=== PATIENT | male | born 1985 | race Hispanic/Latino ===

== ENCOUNTER 2018-06-10 10:38 | Emergency (ER) | payer MEDICAID ==
[2018-06-10 11:03] VITALS: BP 102/63; PULSE 98; RESP 18; TEMP 98.2; O2SAT 99
--- NOTE | 2018-06-10 11:21 | C.PDOC ---
History Of Present Illness 32 year old male presents to the ED for evaluation of a laceration sustained to his left lateral thumb earlier today. Patient states he accidentally cut the area with a kitchen knife at work prior to arrival. Patient denies change in sensation or any other injuries at this time. Time Seen by Provider: 06/10/18 11:16 Chief Complaint (Nursing): Abnormal Skin Integrity History Per: Patient History/Exam Limitations: no limitations Onset/Duration Of Symptoms: Hrs Current Symptoms Are (Timing): Still Present Location Of Injury: Left: Hand (lateral thumb ) Quality Of Symptoms: Painful Additional History Per: Patient Past Medical History Reviewed: Historical Data, Nursing Documentation, Vital Signs Vital Signs: Last Vital Signs Temp 98.2 F 06/10/18 10:57 Pulse 98 H 06/10/18 10:57 Resp 18 06/10/18 10:57 BP 102/63 06/10/18 10:57 Pulse Ox 99 06/10/18 10:57 - Medical History PMH: Depression Surgical History: No Surg Hx Family History: States: Unknown Family Hx - Social History Hx Alcohol Use: No Hx Substance Use: No - Immunization History Hx Tetanus Toxoid Vaccination: No Hx Influenza Vaccination: No Hx Pneumococcal Vaccination: No Review Of Systems Skin: Positive for: Other (laceration to left lateral thumb ) Neurological: Negative for: Weakness, Numbness Physical Exam - Physical Exam Appears: Non-toxic, No Acute Distress Skin: Normal Color, Warm, Dry, Other (1x1cm area avulsed from tip of left lateral thumb. no nail involvement. active bleeding.) Extremity: Normal ROM, Capillary Refill (less than 2 seconds ) Neurological/Psych: Normal Speech, Normal Cognition, Normal Sensation ED Course And Treatment O2 Sat by Pulse Oximetry: 99 (on RA) Pulse Ox Interpretation: Normal Medical Decision Making Medical Decision Making: small L lateral thrumb avulsion, kitchen knife no material to suture. Disposition Doctor Will See Patient In The: Office Counseled Patient/Family Regarding: Studies Performed, Diagnosis - Disposition Referrals: [facility] [Outside] [facility] [Outside] [facility] [Outside] [facility] [Outside] Disposition: HOME/ ROUTINE Disposition Time: 11:19 Condition: GOOD Additional Instructions: ice pack for local anesthesia and control bleeding clean bandage daily bacitracin ointment daily no antibiotics required wear glove at work keep clean and dry. Instructions: Laceration Repair, Wound Care (DC) Forms: [employer] (Czech) - Clinical Impression Clinical Impression: Avulsion, skin - Scribe Statement The provider has reviewed the documentation as recorded by the Scribe (Kaitlin Velasco) Provider Attestation: All medical record entries made by the Scribe were at my direction and personally dictated by me. I have reviewed the chart and agree that the record accurately reflects my personal performance of the history, physical exam, medical decision making, and the department course for this patient. I have also personally directed, reviewed, and agree with the discharge instructions and disposition.
[2018-06-10] MEDS ORDERED: Bacitracin 500 Units/gm Oint Foilpak UD ONE (11:58)
== END 2018-06-10 12:00 | disposition home or self-care (01) ==
LOC: C.ER 10:38
DX: S61.002A Unspecified open wound of left thumb without damage to nail, initial encounter (principal); W26.0XXA Contact with knife, initial encounter; Y92.89 Other specified places as the place of occurrence of the external cause; Y99.0 Civilian activity done for income or pay

== ENCOUNTER 2018-07-24 10:36 | Emergency (ER) | payer MEDICAID, OTHER ==
[2018-07-24 10:48] VITALS: BMI 32.2
[2018-07-24 10:51] VITALS: BP 106/72; PULSE 92; RESP 18; TEMP 98.5; O2SAT 99
--- NOTE | 2018-07-24 11:59 | C.PDOC ---
History Of Present Illness 33 years old male left ER prior to being evaluated. Time Seen by Provider: 07/24/18 11:45 Chief Complaint (Nursing): Med Refill Past Medical History Reviewed: Historical Data, Nursing Documentation, Vital Signs Vital Signs: Last Vital Signs Temp 98.5 F 07/24/18 10:48 Pulse 92 H 07/24/18 10:48 Resp 18 07/24/18 10:48 BP 106/72 07/24/18 10:48 Pulse Ox 99 07/24/18 10:48 - Medical History PMH: Depression Family History: States: Unknown Family Hx - Social History Hx Alcohol Use: No Hx Substance Use: No - Immunization History Hx Tetanus Toxoid Vaccination: No Hx Influenza Vaccination: No Hx Pneumococcal Vaccination: No Review Of Systems Review Of Systems: ROS cannot be obtained secondary to pt's inabilty to answer questions. (Due to patient leaving before being evaluated) ED Course And Treatment O2 Sat by Pulse Oximetry: 99 (RA) Pulse Ox Interpretation: Normal Medical Decision Making Medical Decision Making: Patient left prior to being seen. Disposition - Disposition Disposition: LEFT W/O BEING SEEN - ER ONLY Disposition Time: 12:00 Condition: STABLE Forms: [employer] (Slovenian) - Clinical Impression Clinical Impression: Patient left without being seen - Scribe Statement The provider has reviewed the documentation as recorded by the Scribjuliet Bustillos All medical record entries made by the Scribe were at my direction and personally dictated by me. I have reviewed the chart and agree that the record accurately reflects my personal performance of the history, physical exam, medical decision making, and the department course for this patient. I have also personally directed, reviewed, and agree with the discharge instructions and disposition.
== END 2018-07-24 11:45 | disposition left against medical advice (07) ==
LOC: C.ER 10:36
DX: Z02.89 Encounter for other administrative examinations (principal); Z76.0 Encounter for issue of repeat prescription

== ENCOUNTER 2018-10-05 08:24 | Inpatient (IN) | payer MEDICAID ==
[2018-10-05 08:24] VITALS: BMI 32.2
[2018-10-05 10:29] LABS: BASO # 0.1 K/uL (0.0-0.2); BASO % 0.7 % (0.0-2.0); EOS # 0.1 K/uL (0.0-0.7); EOS % 0.9 % (0.0-4.0); HEMOGLOBIN 14.4 g/dL (12.0-18.0); LYMPH # 2.1 K/uL (1.0-4.3); LYMPH % 21.3 % (20.0-40.0); MEAN CELL VOLUME 88.6 fL (80.0-94.0); MEAN CORPUSCULAR HEMOGLOBIN 29.4 pg (27.0-31.0); MEAN CORPUSCULAR HGB CONC 33.2 g/dL (33.0-37.0); MEAN PLATELET VOLUME 8.7 fL (7.2-11.7); MONO % 10.3 % (0.0-10.0); NEUT # 6.5 K/uL (1.8-7.0); NEUT % 66.8 % (50.0-75.0); RBC 4.88 Mil/uL (4.40-5.90); RED CELL DISTRIBUTION WIDTH 13.3 % (11.5-14.5); WHITE BLOOD COUNT 9.7 K/uL (4.8-10.8)
[2018-10-05 10:49] LABS: URINE BILIRUBIN NEGATIVE (NEGATIVE); URINE BLOOD NEGATIVE (NEGATIVE); URINE CALCIUM OXALATE CRYSTALS OCC /hpf (<OCC); URINE CLARITY Clear (Clear); URINE COLOR Amber (YELLOW); URINE GLUCOSE (UA) NORMAL (Normal); URINE LEUKOCYTE ESTERASE NEG Leu/uL (Negative); URINE PROTEIN NEGATIVE (NEGATIVE); URINE UROBILINOGEN NORMAL mg/dL (0.2-1.0)
[2018-10-05 10:59] LABS: ALB/GLOB RATIO 1.5 (1.0-2.1); ALBUMIN 4.4 g/dL (3.5-5.0); ALT/SGPT 22 U/L (21-72); AST/SGOT 36 U/L (17-59); BLOOD UREA NITROGEN 16 mg/dL (9-20); CALCIUM 9.1 mg/dl (8.6-10.4); GFR NON-AFRICAN AMERICAN > 60
[2018-10-05 11:08] LABS: BARBITURATES, UR NEGATIVE (NEGATIVE); BENZODIAZEPINES, UR NEGATIVE (NEGATIVE); PHENCYCLIDINE, UR NEGATIVE (NEGATIVE)
[2018-10-05 11:12] LABS: OPIATES, UR POSITIVE (NEGATIVE)
--- NOTE | 2018-10-05 11:13 | C.PDOC ---
History Of Present Illness 33 years old male presents to the ED requesting heroin detox. Patient states he last used intranasally this morning. He denies any complaints of withdrawal symptoms at this time. Patient denies suicidal/homicidal ideation at this time. Time Seen by Provider: 10/05/18 08:45 Chief Complaint (Nursing): Substance Abuse History Per: Patient History/Exam Limitations: no limitations Onset/Duration Of Symptoms: Hrs Current Symptoms Are (Timing): Still Present Suicide/Self Injury Attempted (Context): None Modifying Factor(s): Other (heroin ) Associated Symptoms: denies: Suicidal Thoughts, Suicidal Plan Involuntary Hold By: None Recent travel outside of the [place]: No Additional History Per: Patient Past Medical History Reviewed: Historical Data, Nursing Documentation, Vital Signs Vital Signs: Last Vital Signs Temp 99.1 F 10/05/18 08:31 Pulse 117 H 10/05/18 08:31 Resp 18 10/05/18 08:31 BP 128/81 10/05/18 08:31 Pulse Ox 99 10/05/18 08:31 - Medical History PMH: Depression Surgical History: No Surg Hx Family History: States: Unknown Family Hx - Social History Hx Alcohol Use: No Hx Substance Use: Yes - Immunization History Hx Tetanus Toxoid Vaccination: No Hx Influenza Vaccination: No Hx Pneumococcal Vaccination: No Review Of Systems Constitutional: Negative for: Fever, Chills, Weakness Eyes: Negative for: Redness, Other (scleral icterus ) ENT: Negative for: Mouth Swelling Cardiovascular: Negative for: Chest Pain Respiratory: Negative for: Cough, Shortness of Breath Gastrointestinal: Negative for: Nausea, Vomiting, Diarrhea Genitourinary: Negative for: Dysuria, Hematuria Musculoskeletal: Negative for: Back Pain Skin: Negative for: Rash Neurological: Negative for: Weakness, Numbness, Dizziness Psych: Positive for: Other (heroin detox ). Negative for: Suicidal ideation, Withdrawal Physical Exam - Physical Exam Appears: Well, Non-toxic, No Acute Distress Skin: Normal Color, Warm, No Rash Head: Atraumatic, Normacephalic Eye(s): bilateral: Normal Inspection (no scleral icterus ), PERRL, EOMI Ear(s): Bilateral: Normal (no drainage ) Nose: Normal Oral Mucosa: Moist Throat: Normal (no swelling or injection ), No Exudate, Other (airway patent ) Neck: Normal ROM, Supple Chest: Symmetrical Respiratory: No Accessory Muscle Use, Other (normal inspiratory effort ) Gastrointestinal/Abdominal: Soft, No Distention Back: Other (ambulating with steady upright gait ) Extremity: Normal ROM Extremity: Bilateral: Atraumatic Pulses: Left Radial: Normal, Right Radial: Normal Neurological/Psych: Oriented x3, Normal Cranial Nerves (grossly intact ) ED Course And Treatment - Laboratory Results Result Diagrams: 10/05/18 10:22 10/05/18 10:22 Lab Results: Total Bilirubin 0.5 mg/dL (0.2-1.3) 10/05/18 10:22 AST 36 U/L (17-59) 10/05/18 10:22 ALT 22 U/L (21-72) 10/05/18 10:22 Alkaline Phosphatase 68 U/L (38-126) 10/05/18 10:22 Total Protein 7.3 g/dL (6.3-8.3) 10/05/18 10:22 Albumin 4.4 g/dL (3.5-5.0) 10/05/18 10:22 Globulin 2.9 gm/dL (2.2-3.9) 10/05/18 10:22 Albumin/Globulin Ratio 1.5 (1.0-2.1) 10/05/18 10:22 Urine Color Sanjuana (YELLOW) 10/05/18 10:22 Urine Clarity Clear (Clear) 10/05/18 10:22 Urine pH 5.0 (5.0-8.0) 10/05/18 10:22 Ur Specific [place] 1.029 (1.003-1.030) 10/05/18 10:22 Urine Protein Negative mg/dL (NEGATIVE) 10/05/18 10:22 Urine Glucose (UA) Normal mg/dL (Normal) 10/05/18 10:22 Urine Ketones Negative mg/dL (NEGATIVE) 10/05/18 10:22 Urine Blood Negative (NEGATIVE) 10/05/18 10:22 Urine Nitrate Negative (NEGATIVE) 10/05/18 10:22 Urine Bilirubin Negative (NEGATIVE) 10/05/18 10:22 Urine Urobilinogen Normal mg/dL (0.2-1.0) 10/05/18 10:22 Ur Leukocyte Esterase Neg Glenn/uL (Negative) 10/05/18 10:22 Urine WBC (Auto) 2 /hpf (0-5) 10/05/18 10:22 Urine RBC (Auto) 1 /hpf (0-3) 10/05/18 10:22 Calcium Oxalate Crystal Occ /hpf (<OCC) H 10/05/18 10:22 O2 Sat by Pulse Oximetry: 99 (on RA ) Pulse Ox Interpretation: Normal Medical Decision Making Medical Decision Making: Progress: Case discussed with wafer polishing worker, who evaluated the patient at bedside. Patient will received a detox bed once he has been medically cleared in the ED. Bloodwork and urinalysis ordered and reviewed. Disposition - Disposition Disposition: HOSPITALIZED Disposition Time: 11:48 Condition: STABLE - Clinical Impression Clinical Impression: Opioid use disorder, severe, dependence - PA / ECOLOGIST / Resident Statement MD/DO has reviewed & agrees with the documentation as recorded. - Scribe Statement The provider has reviewed the documentation as recorded by the Scribe (Kaitlin Velasco) All medical record entries made by the Scribe were at my direction and personally dictated by me. I have reviewed the chart and agree that the record accurately reflects my personal performance of the history, physical exam, medical decision making, and the department course for this patient. I have also personally directed, reviewed, and agree with the discharge instructions and disposition. Decision To Admit - Pt Status Changed To: Hospital Disposition Of: Inpatient - Admit Certification Admit to Inpatient:: After my assessment, the patient will require hospitalization for at least two midnights. This is because of the severity of symptoms shown, intensity of services needed, and/or the medical risk in this patient being treated as an outpatient. - InPatient: Physician Admission Certification: I certify that this patient requires 2 or more midnights of care for the following reason:: patient will require more than 2 nights for detox - . Bed Request Type: Detox Admitting Physician: Yao Hemphill Patient Diagnosis: Opioid use disorder, severe, dependence
--- NOTE | 2018-10-05 13:04 | PCM.PSYCH ---
Initial Psychiatric Evaluation - Initial Psychiatric Evaluation Type of Admission: Voluntary Legal Status: Capacity Chief Complaint (in patient's own words): "I am withdrawing" History of Present Illness and Precipitating Events: The patient is seen, chart reviewed and case discussed. This is a 23-year-old male, single with no child, homeless and unemployed. The patient is here for opioid detox. He admits to having he used heroin the last 10 days or more while at [facility], around 10 bags a day right he uses intranasally. He was admitted to [facility] mid September and he states that he relapsed soon after. He re ports withdrawal symptoms and OD in the past. He started using opiates at age 29. He denies other drug use or alcohol currently but he used to use cocaine, ecstasy and others in the past. He smokes 1 pack/day cigarettes. He was not rehab [facility] times including [facility] and [facility]. Past psychiatric: He was hospitalized at least 8 times to psychiatry and attempted suicide once in 2014 by overdosing on Klonopin. He was diagnosed with recurrent depression. Currently, he is still depressed but denies feeling suicidal. No audelia or psychosis elicited. He says that some of the psych adm issions were due to substance induced psych symptoms. Medical history: Denies Family psych history: Father had crack cocaine use and bipolar disorder. Current Medications: Active Medications Generic Name Dose Route Start Last Admin Trade Name Freq PRN Reason Stop Dose Admin Al Hydrox/Mg Hydrox/Simethicone 30 ml 10/05/18 14:00 Maalox 30 Ml PO TID PRN Indigestion / Heartburn Aripiprazole 5 mg 10/05/18 22:00 Abilify PO HS JESUS Clonidine HCl 0.1 mg 10/05/18 12:29 Catapres PO Q4 PRN COWS Score More or Equal to 5 Hydroxyzine HCl 50 mg 10/05/18 12:29 Atarax PO Q6H PRN Anxiety Ibuprofen 600 mg 10/05/18 12:29 Motrin Tab PO Q6H PRN Pain, moderate (4-7) Loperamide HCl 2 mg 10/05/18 14:00 Imodium PO Q8 PRN Diarrhea Mirtazapine 15 mg 10/05/18 22:00 Remeron PO HS JESUS Ondansetron HCl 4 mg 03/04/19 12:29 Zofran Tab PO Q8 PRN Nausea/Vomiting Sertraline HCl 50 mg 10/05/18 12:30 Zoloft PO DAILY JESUS Past Psychiatric History - Past Psychiatric History Previous Treatment History: Inpatient Pertinent Medical Hx (Current Medical&Sleep Prob, Allergies): Allergies Allergy/AdvReac Type Severity Reaction Status Date / Time amoxicillin Allergy RASH Verified 10/05/18 08:34 Penicillins Allergy RASH Verified 10/05/18 08:34 ARIPiprazole [Abilify] 5 mg PO DAILY 07/24/18 Sertraline [Zoloft] 200 mg PO DAILY 07/24/18 Gabapentin 300 mg PO TID 10/05/18 Review of Systems - Neurological Neurological: Tremor - Psychiatric Psychiatric: Abnormal Sleep Pattern, Anhedonia, Anxiety, Change in Appetite, Depression, Difficulty Concentrating, Irritability. absent: Hallucinations, Homicidal Ideation, Paranoia, Suicidal Ideation Mental Status Examination - Personal Presentation Personal Presentation: Looks stated age - Affect Affect: Constricted - Motor Activity Motor Activity: Calm - Reliability in Providing Information Reliability in Providing Information: Good - Speech Speech: Organized - Mood Mood: Depressed (He has who) - Formal Thought Process Formal Thought Process: No Impairment ( who is dad) - Cognitive Functions Orientation: Person, Place, Situation, Time Attention/Concentration: Attentive Estimate of Intelligence: Average Judgement: Intact, as evidence by: Insight regarding need for hospitalization Memory: Recent intact, as evidence by: Ability to recall events of the day, Remote intact, as evidenced by: Abilit to recall sig. life events - Risk Risk: Withdrawal, Diminished functioning - Strength & Assets Inventory Strength & Assets Inventory: Cooperative - Limitations Limitations: Other DSM 5 DX - DSM 5 DSM 5 Diagnosis: Opioid withdrawal Opioid use disorder, severe Major depressive disorder, recurrent, moderate Cocaine use disorder, in remission Tobacco use disorder, severe - Recommended/Plan of Treatment Treatment Recommendations and Plan of Treatment: Taper with methadone Continue Zoloft and Abilify Gabapentin for augmentation if needed As needed medications All risks, benefits and alternatives of the meds discussed, and the pt agreed and understood. Attend groups and activities Supportive therapy and psychoeducation [place] for abstinence CBT for relapse prevention Encourage MAT Refer to rehab or IOP, and self-help groups Teach healthy lifestyle methods, i.e. diet, exercise, meditation Smoking cessation with RI Nicotine patch if needed 34 min Projected ELOS: 4-5 days Prognosis: Good with treatment Discharge Plan and Discharge Criteria: Referred to rehab - Smoking Cessation Smoking Cessation Initiated: Yes
--- NOTE | 2018-10-05 13:51 | PCM.BM ---
<Brant Rodas - Last Filed: 10/05/18 13:47> Treatment Plan Problems - Problems identified on initial assessmt defensive coping Date Initiated: 10/05/18 Time Initiated: 13:49 Assessment reference: NA Status: Active Hopelessness Date Initiated: 10/05/18 Time Initiated: 13:50 Assessment reference: NA Status: Active Treatment assets and liabiliti Patient Assests: cooperative, ADL independent Patient Liabilities: live alone, substance abuse - Milieu Protocol Maintain good personal hygiene: daily Encourage regular showers, daily Remind patient to perform daily oral care, daily Assist patient to perform ADL's Maintain personal safety: every shift Educate patient to report safety concerns to staff, every shift Monitor environment for contraband/sharps Medication safety: Monitor for expected outcome, potential side effects: every shift, Assess barriers to learning: every shift, Assess readiness for medication education: every shift <Yao Hemphill - Last Filed: 10/05/18 14:20> - Diagnosis (1) Opioid use disorder, severe, dependence Status: Acute Interventions: 10/05/18 14:21 * Assess 7x/week regarding severity of withdrawal * Educate regarding risks, benefits, side effects and alternatives of medications * Use Motivational Interviewing for abstinence * Use CBT for relapse prevention * Medication management for withdrawal symptoms * Encourage medication assisted treatment * <Kiana Pederson - Last Filed: 10/07/18 09:38> Family Contact Family involvement: No known Family/SO - Goals for Treatment Patient goals for treatment: Complete detox and apply for long-term residential program. Discharge/Continuing Care - Education Needs Education Needs: Patient Medication, Patient Diagnosis/Disease Process, Patient Coping Skills, Patient Anger Management skills, Patient Placement options, Patient Community resources - Discharge Discharge Criteria: No longer exhibiting s/s of withdrawal, Reduction of target symptoms Discharge to:: Substance Abuse Rehab - Treatment Team Participation Patient/Family/SO Statement: 10/07/18 09:37 "I'll try the [facility] in [facility] I can't go back to the one on in [facility]." Discussed with Family/SO: No Was Patient/Family/SO present at Treatment Team Meeting: Yes
[2018-10-05] MEDS ORDERED: Aluminum Hydroxide/Magnesium Hydroxide Susp (30 mL) PO PRN (14:00)
--- NOTE | 2018-10-06 13:12 | PCM.PYCHPN ---
Psychiatric Progress Note - Psychiatric Progress Note Patient seen today, length of contact: 17 min Patient Chief Complaint: "I am so so" Problems Identified/Issues Discussed: The pt is seen, chart reviewed, case is discussed with staff. The pt is compliant with medications and reports no side-effects. Symptoms are improving but needs more time to stabilize and to avoid relapse. Pt attends groups and activities. Support given, psycho-education provided. After care discussed. Medication Change: Yes (detox changes daily) Medical Record Reviewed: Yes Mental Status Examination - Cognitive Function Orientation: Person, Place, Situation, Time Memory: Intact Attention: WNL Concentration: Poor Association: WNL Fund of Knowledge: WNL - Mood Mood: Depressed - Affect Affect: Constricted - Speech Speech: Appropriate - Formal Thought Process Formal Thought Process: No Impairment - Suicidal Ideation Suicidal Ideation: No Goal/Treatment Plan - Goal/Treatment Plan Need for Continued Stay: Discharge may exacerbated symptoms, Severe functional impairment Progress Toward Problem(s) and Goals/Treatment Plan: Taper with methadone Continue Zoloft and Abilify Gabapentin for augmentation if needed As needed medications All risks, benefits and alternatives of the meds discussed, and the pt agreed and understood. Attend groups and activities Supportive therapy and psychoeducation [place] for abstinence CBT for relapse prevention Encourage MAT Refer to rehab or IOP, and self-help groups Teach healthy lifestyle methods, i.e. diet, exercise, meditation Smoking cessation with [place] Nicotine patch if needed
--- NOTE | 2018-10-07 23:10 | PCM.PYCHPN ---
Psychiatric Progress Note - Psychiatric Progress Note Patient seen today, length of contact: 15 min Patient Chief Complaint: "I am better" Problems Identified/Issues Discussed: The pt is seen again, chart reviewed, and case is discussed with the team. The pt denies any side-effects from meds. Attends activities and groups, brief individual therapy provided Not ready for discharge due to ongoing symptoms and high relapse risk. After care discussed again. Medication Change: Yes (detox changes daily) Medical Record Reviewed: Yes Mental Status Examination - Cognitive Function Orientation: Person, Place, Situation, Time Memory: Intact Attention: WNL Concentration: Poor Association: WNL Fund of Knowledge: WNL - Mood Mood: Depressed - Affect Affect: Constricted - Speech Speech: Appropriate - Formal Thought Process Formal Thought Process: No Impairment - Suicidal Ideation Suicidal Ideation: No Goal/Treatment Plan - Goal/Treatment Plan Need for Continued Stay: Discharge may exacerbated symptoms, Severe functional impairment Progress Toward Problem(s) and Goals/Treatment Plan: Taper with methadone Continue Zoloft and Abilify Gabapentin for augmentation if needed As needed medications All risks, benefits and alternatives of the meds discussed, and the pt agreed and understood. Attend groups and activities Supportive therapy and psychoeducation [place] for abstinence CBT for relapse prevention Encourage MAT Refer to rehab or IOP, and self-help groups Teach healthy lifestyle methods, i.e. diet, exercise, meditation Smoking cessation with [place] Nicotine patch if needed
--- NOTE | 2018-10-08 12:46 | PCM.PYCHPN ---
Psychiatric Progress Note - Psychiatric Progress Note Patient seen today, length of contact: 15 min Patient Chief Complaint: "I am tired" Problems Identified/Issues Discussed: The pt is seen, chart reviewed, case is discussed with staff. Support and psychoeducation given, CBT and [place] used briefly The pt is improving slowly but needs more time due to severity of symptoms and relapse risk. No SEs from medications, risks discussed. After care discussed Medication Change: Yes (detox changes daily) Medical Record Reviewed: Yes Mental Status Examination - Cognitive Function Orientation: Person, Place, Situation, Time Memory: Intact Attention: WNL Concentration: Poor Association: WNL Fund of Knowledge: WNL - Mood Mood: Depressed - Affect Affect: Constricted - Speech Speech: Appropriate - Formal Thought Process Formal Thought Process: No Impairment - Suicidal Ideation Suicidal Ideation: No Goal/Treatment Plan - Goal/Treatment Plan Need for Continued Stay: Discharge may exacerbated symptoms, Severe functional impairment Progress Toward Problem(s) and Goals/Treatment Plan: Taper with methadone Continue Zoloft and Abilify Gabapentin for augmentation if needed As needed medications All risks, benefits and alternatives of the meds discussed, and the pt agreed and understood. Attend groups and activities Supportive therapy and psychoeducation [place] for abstinence CBT for relapse prevention Encourage MAT Refer to rehab or IOP, and self-help groups Teach healthy lifestyle methods, i.e. diet, exercise, meditation Smoking cessation with [place] Nicotine patch if needed
--- NOTE | 2018-10-09 08:51 | PCM.PYCHDC ---
Mental Status Examination - Mental Status Examination Orientation: Person Discharge Summary - Discharge Note Consultations:: List each consultation separately and include: 1. Reason for request. 2. Findings. 3. Follow-up Summary of Hospital Course include:: 1. Description of specific treatment plan utilized for patients during their course of treatmen. 2. Summarize the time- course for resolution of acute symptoms and/or regressed behaviors. 3. Describe issues identified and worked on during hospitalization. 4. Describe medication utilized. 5. Describe medical problems identified and treated. 6. Reassessment of suicide risk Summary of Hospital Course: The patient is seen, chart reviewed and case discussed. This is a 23-year-old male, single with no child, homeless and unemplo yed. The patient is here for opioid detox. He admits to having he used heroin the last 10 days or more while at [facility], around 10 bags a day right he uses intranasally. He was admitted to [facility] mid September and he states that he relapsed soon after. He reports withdrawal symptoms and OD in the past. He started using opiates at age 29. He denies other drug use or alcohol currently but he used to use cocaine, ecstasy and others in the past. He smokes 1 pack/day cigarettes. He was not rehab 5 times including [facility] and [facility]. Past psychiatric: He was hospitalized at least 8 times to psychiatry and attempted suicide once in 2014 by overdosing on Klonopin. He was diagnosed with recurrent depression. Currently, he is still depressed but denies feeling duron icidal. No audelia or psychosis elicited. He says that some of the psych admissions were due to substance induced psych symptoms. Medical history: Denies Family psych history: Father had crack cocaine use and bipolar disorder. He will go to [facility]. - Diagnosis (1) Opioid use disorder, severe, dependence Current Visit: Yes Status: Acute - Final Diagnosis (DSM 5) Condition upon Discharge: STABLE Disposition: HOME/ ROUTINE Follow-up Treatment Plan: Taper with methadone Continue Zoloft and Abilify Gabapentin for augmentation if needed As needed medications All risks, benefits and alternatives of the meds discussed, and the pt agreed and understood. Attend groups and activities Supportive therapy and psychoeducation [place] for abstinence CBT for relapse prevention Encourage MAT Refer to rehab or IOP, and self-help groups Teach healthy lifestyle methods, i.e. diet, exercise, meditation Smoking cessation with [place] Nicotine patch if needed Prescriptions/Medication Reconciliation: ARIPiprazole [Abilify] 5 mg PO HS #30 tab Mirtazapine [Remeron] 15 mg PO HS #30 tab Sertraline [Zoloft] 50 mg PO DAILY #30 tab
[2018-10-09 11:37] VITALS: BP 117/76; PULSE 80; RESP 18; TEMP 97.7; O2SAT 99
== END 2018-10-09 10:00 | disposition home or self-care (01) | DRG 751 ==
LOC: C.ER 08:24 → C.7D 11:50
PROVIDERS: ADMIT Psychiatry & Neurology Psychiatry; ATTEND Psychiatry & Neurology Psychiatry
DX: F33.1 Major depressive disorder, recurrent, moderate (principal); F11.23 Opioid dependence with withdrawal; F14.11 Cocaine abuse, in remission; F17.210 Nicotine dependence, cigarettes, uncomplicated